=== PATIENT | male | born 1960 | race Caucasian/White ===

== ENCOUNTER 2017-04-11 08:58 | Emergency (ER) | payer MEDICAID ==
[2017-04-11 09:22] VITALS: BMI 20.7
[2017-04-11 09:23] VITALS: TEMP 98; O2SAT 99
--- NOTE | 2017-04-11 11:04 | ED PDOC ---
Arrival/HPI - General Chief Complaint: High Blood Pressure Time Seen by Provider: 04/11/17 09:22 Historian: Patient - History of Present Illness Narrative History of Present Illness (Text): 04/11/17 09:54 A 57 year old male, whose past medical history includes hypertension, presents to the emergency department complaining of dizziness and feeling off-balance. Patient reports waking up this morning with symptoms. Patient notes also experiencing slightly slurred speech with shaky voice this morning when he was talking to his .; heaviness in head, headache, and cold throughout body. 6- 8 months ago, patient experienced similar symptoms of dizziness, headache, and was seen by PMD but was told he had no medical problems. No other complaints at this time. Last time known well was last night but unsure what time. PMD: Dr. Tamara Truong Time/Duration: Other (symptoms began this morning) Symptom Onset: Sudden Symptom Course: Unchanged Past Medical History - Provider Review Nursing Documentation Reviewed: Yes - Cardiac Hx Cardiac Disorders: Yes Hx Hypertension: Yes - Pulmonary Hx Respiratory Disorders: No - Neurological Hx Neurological Disorder: No - HEENT Hx HEENT Disorder: No - Renal Hx Renal Disorder: No - Endocrine/Metabolic Hx Endocrine Disorders: Yes Hx Diabetes Mellitus Type 2: Yes - Hematological/Oncological Hx Blood Disorders: Yes Hx Hepatitis C: Yes - Integumentary Hx Dermatological Disorder: No - Musculoskeletal/Rheumatological Hx Musculoskeletal Disorders: No - Gastrointestinal Hx Gastrointestinal Disorders: No - Genitourinary/Gynecological Hx Genitourinary Disorders: No - Psychiatric Hx Psychophysiologic Disorder: No Hx Substance Use: No Family/Social History - Physician Review Nursing Documentation Reviewed: Yes Family/Social History: No Known Family HX Smoking Status: Never Smoked Hx Alcohol Use: No Hx Substance Use: No Allergies/Home Meds Allergies/Adverse Reactions: Allergies No Known Allergies Allergy (Verified 04/11/17 09:23) Home Medications: Home Meds Medication Instructions Recorded Confirmed Insulin Detemir [Levemir] 5 unit SC HS 04/11/17 04/11/17 Irbesartan [Avapro] 75 mg PO DAILY 04/11/17 04/11/17 metFORMIN [glucOPHAGE] 500 mg PO DAILY 04/11/17 04/11/17 Review of Systems - Physician Review All systems were reviewed & negative as marked: Yes - Review of Systems Skin: Other (feeling cold throughout body) Neurological: Headache (head-pressure), Dizziness, Focal Weakness, Gait Changes (patient states feeling off-balance), Speech Changes (felt voice was slightly slurred and shaky this morning when talking to ) Physical Exam Vital Signs Reviewed: Yes Vital Signs Temp Pulse Resp BP Pulse Ox 04/11/17 13:41 79 18 116/71 99 04/11/17 12:36 86 18 118/76 99 04/11/17 11:17 98 H 17 121/70 99 04/11/17 09:22 98.0 F 106 H 14 161/84 H 99 Temperature: Afebrile Blood Pressure: Hypertensive Pulse: Regular Respiratory Rate: Normal Appearance: Positive for: Well-Appearing Pain Distress: None Mental Status: Positive for: Alert and Oriented X 3 Finger Stick Blood Glucose: 243 - Systems Exam Head: Present: Atraumatic, Normocephalic Pupils: Present: PERRL Extroacular Muscles: Present: EOMI Conjunctiva: Present: Normal Mouth: Present: Moist Mucous Membranes Neck: Present: Normal Range of Motion Respiratory/Chest: Present: Clear to Auscultation, Good Air Exchange. No: Respiratory Distress, Accessory Muscle Use Cardiovascular: Present: Regular Rate and Rhythm, Normal S1, S2. No: Murmurs Abdomen: Present: Normal Bowel Sounds. No: Tenderness, Distention, Peritoneal Signs Back: Present: Normal Inspection Upper Extremity: Present: Normal Inspection. No: Cyanosis, Edema Lower Extremity: Present: Normal Inspection. No: Edema Neurological: Present: GCS=15, CN II-XII Intact, Speech Normal Skin: Present: Warm, Dry, Normal Color. No: Rashes Psychiatric: Present: Alert, Oriented x 3, Normal Insight, Normal Concentration Medical Decision Making ED Course and Treatment: 04/11/17 09:59 Impression: 57 year old male with dizziness, difficult speaking and gait changes since waking up this morning that have now resolved DDx: TIA vs CVA vs Electrolyte Disturbances, vs Hypertensive Emergency Plan: -- EKG -- Head CT -- Chest X-ray -- Labs -- Urinalysis -- Reassess and disposition Progress Notes: EKG: Ordered, reviewed, and independently interpreted the EKG. Rate : 101 BPM Rhythm : Sinus tachycardia Interpretation : No ST-segment elevations or depressions, no T-wave inversions, normal intervals. Comparison : No previous EKG for comparison. 04/11/2017 13:[address] IMPRESSION: No acute findings Dictator: Carlos Graves MD 04/11/17 13:[address] negative. Aspirin PO. EKG reviewed and documented. Patient symptoms are still normal. Case discussed with Dr. Holm who will place under her service. 04/11/17 13:[address] Alford who recommends an MRI and she will evaluate him. - Lab Interpretations Lab Results: 04/11/17 11:20 04/11/17 11:20 Lab Results 04/11/17 11:20: Blood Type A NEGATIVE, Antibody Screen Negative, BBK History Checked No verified bt 04/11/17 11:20: Sodium 140, Potassium 4.3, Chloride 102, Carbon Dioxide 27, Anion Gap 15, BUN 16, Creatinine 0.6 L, Est GFR ( Amer) > 60, Est GFR ( Non-Af Amer) > 60, Random Glucose 239 H, Calcium 9.5, Total Bilirubin 0.7, AST 44, ALT 71 H, Alkaline Phosphatase 70, Troponin I < 0.01, Total Protein 7.6, Albumin 4.2, Globulin 3.4, Albumin/Globulin Ratio 1.2, Triglycerides 72, Cholesterol 135, LDL Cholesterol Direct 82, HDL Cholesterol 38 04/11/17 11:20: PT 14.7 H, INR 1.27 H, APTT 29.9 04/11/17 11:20: WBC 9.0, RBC 4.83, Hgb 14.4, Hct 41.9 L, MCV 86.7, MCH 29.8, MCHC 34.4, RDW 12.6, Plt Count 161, MPV 11.8 H, Gran % 88.5 H, Lymph % (Auto) 7.0 L, [place] % (Auto) 4.2, Eos % (Auto) 0.2 L, Baso % (Auto) 0.1, Gran # 8.00 H, Lymph # (Auto) 0.6 L, [place] # (Auto) 0.4, Eos # (Auto) 0.0, Baso # (Auto) 0.01 04/11/17 11:00: Urine Color Yellow, Urine Appearance Clear, Urine pH 7.0, Ur Specific [place] 1.015, Urine Protein Negative, Urine Glucose (UA) >=1000, Urine Ketones Negative, Urine Blood Negative, Urine Nitrate Negative, Urine Bilirubin Negative, Urine Urobilinogen 0.2, Ur Leukocyte Esterase Negative - RAD Interpretation Radiology Orders: 04/11/17 09:58 CHEST ONE VIEW [RAD] Stat 04/11/17 09:59 HEAD W/O CONTRAST [CT] Stat - Medication Orders Current Medication Orders: Discontinued Medications Aspirin (Aspirin) 325 mg PO STAT STA Stop: 04/11/17 13:31 NIHSS Scale ([place]) Time Performed: 09:22 - How Severe is the Stoke Baseline Level of Consciousness: 0=Alert LOC to Questions: 0=Both comments correct LOC to commands: 0=Obeys both correctly Best Gaze: 0=Normal Visual: 0=No visual loss Facial: 0=Normal Motor Arm - Left: 0=No drift Motor Arm - Right: 0=No drift Motor Leg - Left: 0=No drift Motor Leg - Right: 0=No drift Limb Ataxia: 0=Absent Sensory: 0=Normal Best Language: 0=No aphasia Dysarthia: 0=Normal articulation Extinction & Inattention (Neglect): 0=Normal, no object Score: 0 Risk Level: No Stroke Risk rTPA Inclusion/Exclusion - Refusal of Treatment Patient Refused Treatment: No - Inclusion Criteria for Altepase Patient is 18 years or Older: Yes The Clinical Diagnosis of Ischemic Stroke That is Causing a Potentially Disabling Neurological Deficit: Yes Time of Onset is Well Established to be Less Than 270 Minute Before Treatment Would Begin: No Risk/Benefit Discussed With Patient/Family Member Present: No - Scribe Statement The provider has reviewed the documentation as recorded by the Griselda Austin Provider Scribe Attestation: All medical record entries made by the Griselda were at my direction and personally dictated by me. I have reviewed the chart and agree that the record accurately reflects my personal performance of the history, physical exam, medical decision making, and the department course for this patient. I have also personally directed, reviewed, and agree with the discharge instructions and disposition. Disposition/Present on Arrival - Present on Arrival Any Indicators Present on Arrival: No History of DVT/PE: No History of Uncontrolled Diabetes: No Urinary Catheter: No History of Decub. Ulcer: No History Surgical Site Infection Following: None - Disposition Have Diagnosis and Disposition been Completed?: Yes Diagnosis: TIA (transient ischemic attack), Hypertension Disposition: HOSPITALIZED Disposition Time: 13:30 Patient Plan: Observation Patient Problems: Current Active Problems Problem Status Onset TIA (transient ischemic attack) Acute Hypertension Acute Condition: FAIR Forms: [employer] (Bel[place]ian)
[2017-04-11 11:25] LABS: URINE BILIRUBIN NEGATIVE (NEGATIVE); URINE BLOOD NEGATIVE (NEGATIVE); URINE GLUCOSE (UA) >=1000 mg/dL (NEGATIVE); URINE LEUKOCYTE ESTERASE NEGATIVE Leu/uL (NEGATIVE); URINE NITRATE NEGATIVE (NEGATIVE); URINE PROTEIN NEGATIVE mg/dL (<30 mg/dL); URINE UROBILINOGEN 0.2 E.U./dL (<1 E.U./dL)
[2017-04-11 11:26] LABS: URINE APPEARANCE CLEAR (CLEAR); URINE COLOR YELLOW (YELLOW)
[2017-04-11 11:46] LABS: BASO # 0.01 K/mm3 (0.0-2.0); BASO % 0.1 % (0.0-3.0); EOS % 0.2 % (1.5-5.0); GRAN % 88.5 % (50.0-68.0); HEMOGLOBIN 14.4 g/dL (14.0-18.0); LYMPH # 0.6 (1.2-3.4); MEAN CELL VOLUME 86.7 fl (80.0-105.0); MEAN CORPUSCULAR HEMOGLOBIN 29.8 pg (25.0-35.0); MEAN CORPUSCULAR HGB CONC 34.4 g/dl (31.0-37.0); MEAN PLATELET VOLUME 11.8 fl (7.0-11.0); MONO # 0.4 (0.1-0.6); MONO % 4.2 % (1.0-6.0); RBC 4.83 10^6/uL (3.5-6.1); RED CELL DISTRIBUTION WIDTH 12.6 % (11.5-14.5)
[2017-04-11 11:58] LABS: ALB/GLOB RATIO 1.2 (1.1-1.8); ALBUMIN 4.2 g/dL (3.0-4.8); ALT/SGPT 71 U/L (7-56); AST/SGOT 44 U/L (17-59); BLOOD UREA NITROGEN 16 mg/dL (7-21); CALCIUM 9.5 mg/dL (8.4-10.5); GFR AFRICAN-AMERICAN > 60; GFR NON-AFRICAN AMERICAN > 60; HDL CHOLESTEROL 38 mg/dL (29-60)
[2017-04-11 12:09] LABS: LDL CHOLESTEROL 82 mg/dL (0-129)
[2017-04-11 12:12] LABS: TROPONIN I < 0.01 ng/mL
[2017-04-11 12:14] LABS: INR 1.27 (0.93-1.08); PARTIAL THROMBOPLASTIN TIME 29.9 Seconds (25.1-36.5); PROTHROMBIN TIME 14.7 SECONDS (9.4-12.5)
[2017-04-11 12:36] VITALS: RESP 18
--- NOTE | 2017-04-11 13:10 | CT ---
PROCEDURE: CT HEAD WITHOUT CONTRAST. HISTORY: dizziness r/o Cva COMPARISON: None available. TECHNIQUE: Axial computed tomography images were obtained through the head/brain without intravenous contrast. Radiation dose: Total exam DLP = 772 mGy-cm. This CT exam was performed using one or more of the following dose reduction techniques: Automated exposure control, adjustment of the mA and/or kV according to patient size, and/or use of iterative reconstruction technique. FINDINGS: HEMORRHAGE: No intracranial hemorrhage. BRAIN: No mass effect or edema. No atrophy or chronic microvascular ischemic changes. VENTRICLES: Unremarkable. No hydrocephalus. CALVARIUM: Unremarkable. PARANASAL SINUSES: Unremarkable as visualized. No significant inflammatory changes. MASTOID AIR CELLS: Unremarkable as visualized. No inflammatory changes. OTHER FINDINGS: None. IMPRESSION: No acute findings
--- NOTE | 2017-04-11 13:49 | RAD ---
PROCEDURE: CHEST RADIOGRAPH, 1 VIEW HISTORY: dizziness COMPARISON: AllNone available. FINDINGS: LUNGS: Clear. PLEURA: No pneumothorax or pleural fluid seen. CARDIOVASCULAR: Normal. OSSEOUS STRUCTURES: No significant abnormalities. VISUALIZED UPPER ABDOMEN: Normal. OTHER FINDINGS: None. IMPRESSION: No active disease.
--- NOTE | 2017-04-11 15:06 | CT ---
PROCEDURE: CT Angiography of the neck with contrast HISTORY: TIA COMPARISON: None available. TECHNIQUE: Contiguous axial images of the neck were obtained from the level of the skull-base to the superior mediastinum in the arteriographic phase of enhancement. Coronal and sagittal reformats or also generated. IV contrast dose: 150 cc of Omni 350 Radiation Dose - DLP: 453 mGy-cm This CT exam was performed using one or more of the following dose reduction techniques: Automated exposure control, adjustment of the mA and/or kV according to patient size, and/or use of iterative reconstruction technique. FINDINGS: RIGHT CAROTID ARTERIES: Common Carotid Artery: Normal. Carotid Bifurcation: Normal. Internal Carotid Artery:Normal. External Carotid Artery (proximal branches): Normal. LEFT CAROTID ARTERIES: Common Carotid Artery: Normal. Carotid Bifurcation: Normal. Internal Carotid Artery:Normal. External Carotid Artery (proximal branches): Normal. VERTEBRAL ARTERIES: Right Vertebral Artery: Dominant Left Vertebral Artery: Normal. OTHER FINDINGS: None. IMPRESSION: Normal CT Angiography of the neck. PROCEDURE: CT Angiography of the Brain. HISTORY: TIA COMPARISON: None available. TECHNIQUE: CT angiography of the intracranial arteries was performed. Coronal and sagittal maximum intensity projection reformated images were generated. This CT exam was performed using one or more of the following dose reduction techniques: Automated exposure control, adjustment of the mA and/or kV according to patient size, and/or use of iterative reconstruction technique. FINDINGS: INTERNAL CEREBRAL ARTERIES: Unremarkable. The skull base, petrous, cavernous and supraclinoid segments are bilaterally widely patent. ANTERIOR CEREBRAL ARTERIES: Unremarkable. A1 and A2 segments are widely patent. Smaller distal branches unremarkable, as visualized. MIDDLE CEREBRAL ARTERIES: Unremarkable. M1 and M2 segments are widely patent. Perisylvian branches grossly symmetric. POSTERIOR CIRCULATION: Basilar Artery: Unremarkable. Distal Vertebral Arteries: Unremarkable. Posterior Cerebral Arteries: Unremarkable. Posterior Inferior Cerebellar Arteries: Unremarkable. ANEURYSM/ VASCULAR MALFORMATIONS: None. OTHER FINDINGS: None. IMPRESSION: Unremarkable CT Angiography of the Brain.
[2017-04-11 15:21] LABS: MAGNESIUM 1.7 mg/dL (1.7-2.2)
--- NOTE | 2017-04-11 15:22 | CP.PCM.CON ---
History of Present Illness - History of Present Illness History of Present Illness: 57 yr old male with long standing history of Hypertension, not always compliant with his medications, presents with dizziness. is seen by , his pmd, and has had several hypertensive crises, and does not take his medication. He denies aphasia, loc, weakness, visual field deficits. In ER, his bp was brought down to 120/30, from 160/80. PMH/PSH: as above and gives a history of Hepatitis C, no old strokes. FH/SH: no tobacco, no etoh. All: nkda. On exam: aaox3. Pupils 3mm-2mm with light. EOMI. CN 2-12 normal. VFF Cn 2-12 normal. Speech fluent. Can name and repeat. No dysarthria, no aphasia. Motor: 5/5 ul and ll bl. Sensory: no deficits. Cerebellar: no dysmetria, can walk toes heels well. Dtr: +1 ul and ll bl. Toes downgoing. No clonus. Past Patient History - Past Social History Smoking Status: Never Smoked - CARDIAC Hx Cardiac Disorders: Yes Hx Hypertension: Yes - PULMONARY Hx Respiratory Disorders: No - NEUROLOGICAL Hx Neurological Disorder: No - HEENT Hx HEENT Problems: No - RENAL Hx Chronic Kidney Disease: No - ENDOCRINE/METABOLIC Hx Endocrine Disorders: Yes Hx Diabetes Mellitus Type 2: Yes - HEMATOLOGICAL/ONCOLOGICAL Hx Blood Disorders: Yes Hx Hepatitis C: Yes - INTEGUMENTARY Hx Dermatological Problems: No - MUSCULOSKELETAL/RHEUMATOLOGICAL Hx Musculoskeletal Disorders: No - GASTROINTESTINAL Hx Gastrointestinal Disorders: No - GENITOURINARY/GYNECOLOGICAL Hx Genitourinary Disorders: No - PSYCHIATRIC Hx Psychophysiologic Disorder: No Hx Substance Use: No - SURGICAL HISTORY Hx Surgeries: No Meds Allergies/Adverse Reactions: Allergies Allergy/AdvReac Type Severity Reaction Status Date / Time No Known Allergies Allergy Verified 04/11/17 09:23 - Medications Medications: Current Medications Aspirin (Ecotrin) 81 mg PO DAILY [facility] Atorvastatin Calcium (Lipitor) 40 mg PO DIN [facility] Clopidogrel Bisulfate (Plavix) 75 mg PO DAILY [facility] Heparin Sodium (Porcine) (Heparin) 5,000 units SC Q12 [facility] PRN Reason: Protocol Insulin Detemir (Levemir) 5 unit SC HS [facility] Insulin Human Lispro (Humalog Low) 0 units SC ACHS [facility] PRN Reason: Protocol Losartan Potassium (Cozaar) 25 mg PO DAILY [facility] Pantoprazole Sodium (Protonix Ec Tab) 40 mg PO 0600 [facility] Results - Vital Signs Recent Vital Signs: Last Vital Signs Temp 98.0 F 04/11/17 09:22 Pulse 79 04/11/17 13:41 Resp 18 04/11/17 13:41 BP 116/71 04/11/17 13:41 Pulse Ox 99 04/11/17 13:41 - Labs Result Diagrams: 04/11/17 11:20 04/11/17 11:20 - Imaging and Cardiology CT scan - head Status: Image reviewed by me, Report reviewed by me Assessment & Plan - Assessment and Plan (Free Text) Assessment: 57 yr old male with hypertensive crisis and normal neurological exam. CT and CTA are normal, and he has a normal neurological examination. I will recommend to discharge home and follow up with pmd. I have also counselled patient re: diet, exercise and compliance with medications.
[2017-04-11 15:24] VITALS: BP 114/69; PULSE 75
--- NOTE | 2017-04-11 15:54 | CP.PCM.HP ---
<Andreia Varela - Last Filed: 04/11/17 15:47> History of Present Illness - History of Present Illness History of Present Illness: Dr. Avila Service CC: High BP, headache, dizzyiness, slurred speech HPI: 57 M with a PMHx of HTN, DM2, and hep c (known untreated) presented to the [facility] with complaints of headache, dizziness, slurred speech, and lightheadedness. Pt states that he took his blood sugar this morning, found to be elevated in 200s, then took his BP found it to be elevated 180/120 and subsequently took a double dose of his anti-HTN medication (that he has not been taking regularly). Pt reported slight slurring of his speech while speaking to this this morning, however resolved within 5-10 mins. Pt stated that by the time he arrived to the ED, his symptoms had resolved. Pt denied fever, chills, sob, weakness, dysphagia, blurry vision, abdominal pains, chest pains, nausea, vomiting, diarrhea, and constipation. PMHx: HTN, DM2, Hep C PSHx: Denied SHx: Denied tobacco, etoh, or illicit drugs FamilyHx: Denied Meds: Metformin, glypizide, irbesartan, levemir Allergies: NKDA PMD: Dr. Lima Present on Admission - Present on Admission Any Indicators Present on Admission: No Review of Systems - Review of Systems Review of Systems: as per HPI Otherwise negative Past Patient History - Past Social History Smoking Status: Never Smoked - CARDIAC Hx Cardiac Disorders: Yes Hx Hypertension: Yes - PULMONARY Hx Respiratory Disorders: No - NEUROLOGICAL Hx Neurological Disorder: No - HEENT Hx HEENT Problems: No - RENAL Hx Chronic Kidney Disease: No - ENDOCRINE/METABOLIC Hx Endocrine Disorders: Yes Hx Diabetes Mellitus Type 2: Yes - HEMATOLOGICAL/ONCOLOGICAL Hx Blood Disorders: Yes Hx Hepatitis C: Yes - INTEGUMENTARY Hx Dermatological Problems: No - MUSCULOSKELETAL/RHEUMATOLOGICAL Hx Musculoskeletal Disorders: No - GASTROINTESTINAL Hx Gastrointestinal Disorders: No - GENITOURINARY/GYNECOLOGICAL Hx Genitourinary Disorders: No - PSYCHIATRIC Hx Psychophysiologic Disorder: No Hx Substance Use: No - SURGICAL HISTORY Hx Surgeries: No Meds Allergies/Adverse Reactions: Allergies Allergy/AdvReac Type Severity Reaction Status Date / Time No Known Allergies Allergy Verified 04/11/17 09:23 Physical Exam - Constitutional Appears: No Acute Distress - Head Exam Head Exam: ATRAUMATIC, NORMAL INSPECTION, NORMOCEPHALIC - Eye Exam Eye Exam: EOMI, Normal appearance, PERRL Pupil Exam: NORMAL ACCOMODATION, PERRL - ENT Exam ENT Exam: Mucous Membranes Moist, Normal Exam - Neck Exam Neck exam: Positive for: Normal Inspection - Respiratory Exam Respiratory Exam: Clear to Auscultation Bilateral, NORMAL BREATHING PATTERN - Cardiovascular Exam Cardiovascular Exam: REGULAR RHYTHM, +S1, +S2 - GI/Abdominal Exam GI & Abdominal Exam: Normal Bowel Sounds, Soft. absent: Tenderness - Extremities Exam Extremities exam: Positive for: normal inspection - Back Exam Back exam: NORMAL INSPECTION - Neurological Exam Neurological exam: Alert, CN II-XII Intact, Normal Gait, Oriented x3, Reflexes Normal Additional comments: No dysarthria, no aphasia. Motor: 5/5 ul and ll bl. Sensory: no deficits. Cerebellar: no dysmetria, can walk toes heels well. Dtr: +1 ul and ll bl. Toes downgoing. No clonus. - Psychiatric Exam Psychiatric exam: Normal Affect, Normal Mood - Skin Skin Exam: Dry, Intact, Normal Color, Warm Results - Vital Signs Recent Vital Signs: Last Vital Signs Temp 98.0 F 04/11/17 09:22 Pulse 75 04/11/17 15:23 Resp 18 04/11/17 15:23 BP 114/69 04/11/17 15:23 Pulse Ox 99 04/11/17 15:23 - Labs Result Diagrams: 04/11/17 11:20 04/11/17 11:20 Labs: Laboratory Results - last 24 hr 04/11/17 04/11/17 04/11/17 11:00 11:20 11:20 WBC 9.0 RBC 4.83 Hgb 14.4 Hct 41.9 L MCV 86.7 MCH 29.8 MCHC 34.4 RDW 12.6 Plt Count 161 MPV 11.8 H Gran % 88.5 H Lymph % (Auto) 7.0 L Creek % (Auto) 4.2 Eos % (Auto) 0.2 L Baso % (Auto) 0.1 Gran # 8.00 H Lymph # (Auto) 0.6 L Creek # (Auto) 0.4 Eos # (Auto) 0.0 Baso # (Auto) 0.01 PT 14.7 H INR 1.27 H APTT 29.9 Sodium Potassium Chloride Carbon Dioxide Anion Gap BUN Creatinine Est GFR ( Amer) Est GFR (Non-Af Amer) Random Glucose Calcium Phosphorus Magnesium Total Bilirubin AST ALT Alkaline Phosphatase Troponin I Total Protein Albumin Globulin Albumin/Globulin Ratio Triglycerides Cholesterol LDL Cholesterol Direct HDL Cholesterol Urine Color Yellow Urine Appearance Clear Urine pH 7.0 Ur Specific [place] 1.015 Urine Protein Negative Urine Glucose (UA) >=1000 Urine Ketones Negative Urine Blood Negative Urine Nitrate Negative Urine Bilirubin Negative Urine Urobilinogen 0.2 Ur Leukocyte Esterase Negative Blood Type Blood Type Confirm Antibody Screen BBK History Checked 04/11/17 04/11/17 04/11/17 11:20 11:20 12:50 WBC RBC Hgb Hct MCV MCH MCHC RDW Plt Count MPV Gran % Lymph % (Auto) Creek % (Auto) Eos % (Auto) Baso % (Auto) Gran # Lymph # (Auto) Creek # (Auto) Eos # (Auto) Baso # (Auto) PT INR APTT Sodium 140 Potassium 4.3 Chloride 102 Carbon Dioxide 27 Anion Gap 15 BUN 16 Creatinine 0.6 L Est GFR ( Amer) > 60 Est GFR (Non-Af Amer) > 60 Random Glucose 239 H Calcium 9.5 Phosphorus Magnesium Total Bilirubin 0.7 AST 44 ALT 71 H Alkaline Phosphatase 70 Troponin I < 0.01 Total Protein 7.6 Albumin 4.2 Globulin 3.4 Albumin/Globulin Ratio 1.2 Triglycerides 72 Cholesterol 135 LDL Cholesterol Direct 82 HDL Cholesterol 38 Urine Color Urine Appearance Urine pH Ur Specific [place] Urine Protein Urine Glucose (UA) Urine Ketones Urine Blood Urine Nitrate Urine Bilirubin Urine Urobilinogen Ur Leukocyte Esterase Blood Type A NEGATIVE Blood Type Confirm A NEGATIVE Antibody Screen Negative BBK History Checked No verified bt 04/11/17 15:00 WBC RBC Hgb Hct MCV MCH MCHC RDW Plt Count MPV Gran % Lymph % (Auto) Creek % (Auto) Eos % (Auto) Baso % (Auto) Gran # Lymph # (Auto) Creek # (Auto) Eos # (Auto) Baso # (Auto) PT INR APTT Sodium Potassium Chloride Carbon Dioxide Anion Gap BUN Creatinine Est GFR ( Amer) Est GFR (Non-Af Amer) Random Glucose Calcium Phosphorus 2.4 L Magnesium 1.7 Total Bilirubin AST ALT Alkaline Phosphatase Troponin I Total Protein Albumin Globulin Albumin/Globulin Ratio Triglycerides Cholesterol LDL Cholesterol Direct HDL Cholesterol Urine Color Urine Appearance Urine pH Ur Specific [place] Urine Protein Urine Glucose (UA) Urine Ketones Urine Blood Urine Nitrate Urine Bilirubin Urine Urobilinogen Ur Leukocyte Esterase Blood Type Blood Type Confirm Antibody Screen BBK History Checked Assessment & Plan - Assessment and Plan (Free Text) Assessment: 57 M with a PMHx of HTN, DM2, and hep c (known untreated) presented to the [facility] with complaints of headache, dizziness, slurred speech, and lightheadedness admitted for TIA. TIA CTH negative CTA pending read Lipid profile wnl ASA in ED BP stable ABCD2: 3, low risk asymptomatic Dr. Alford, Neuro Consulted fu reccs HTN Stable continue home meds: irbesartan DM2 hold metformin HgbA1c ISS levemir 5units HS HepC outpt fu LFTs wnl Gi ppx protonix DVT ppx heparin Seen reviewed and discussed with attending Dr. Avila <Becki Avila - Last Filed: 04/11/17 16:31> Results - Vital Signs Recent Vital Signs: Last Vital Signs Temp 98.0 F 04/11/17 09:22 Pulse 75 04/11/17 15:23 Resp 18 04/11/17 15:23 BP 114/69 04/11/17 15:23 Pulse Ox 99 04/11/17 15:23 - Labs Result Diagrams: 04/11/17 11:20 04/11/17 11:20 Labs: Laboratory Results - last 24 hr 04/11/17 04/11/17 04/11/17 11:00 11:20 11:20 WBC 9.0 RBC 4.83 Hgb 14.4 Hct 41.9 L MCV 86.7 MCH 29.8 MCHC 34.4 RDW 12.6 Plt Count 161 MPV 11.8 H Gran % 88.5 H Lymph % (Auto) 7.0 L [place] % (Auto) 4.2 Eos % (Auto) 0.2 L Baso % (Auto) 0.1 Gran # 8.00 H Lymph # (Auto) 0.6 L [place] # (Auto) 0.4 Eos # (Auto) 0.0 Baso # (Auto) 0.01 PT 14.7 H INR 1.27 H APTT 29.9 Sodium Potassium Chloride Carbon Dioxide Anion Gap BUN Creatinine Est GFR ( Amer) Est GFR (Non-Af Amer) Random Glucose Calcium Phosphorus Magnesium Total Bilirubin AST ALT Alkaline Phosphatase Troponin I Total Protein Albumin Globulin Albumin/Globulin Ratio Triglycerides Cholesterol LDL Cholesterol Direct HDL Cholesterol TSH 3rd Generation Urine Color Yellow Urine Appearance Clear Urine pH 7.0 Ur Specific [place] 1.015 Urine Protein Negative Urine Glucose (UA) >=1000 Urine Ketones Negative Urine Blood Negative Urine Nitrate Negative Urine Bilirubin Negative Urine Urobilinogen 0.2 Ur Leukocyte Esterase Negative Blood Type Blood Type Confirm Antibody Screen BBK History Checked 04/11/17 04/11/17 04/11/17 11:20 11:20 12:50 WBC RBC Hgb Hct MCV MCH MCHC RDW Plt Count MPV Gran % Lymph % (Auto) Creek % (Auto) Eos % (Auto) Baso % (Auto) Gran # Lymph # (Auto) [place] # (Auto) Eos # (Auto) Baso # (Auto) PT INR APTT Sodium 140 Potassium 4.3 Chloride 102 Carbon Dioxide 27 Anion Gap 15 BUN 16 Creatinine 0.6 L Est GFR ( Amer) > 60 Est GFR (Non-Af Amer) > 60 Random Glucose 239 H Calcium 9.5 Phosphorus Magnesium Total Bilirubin 0.7 AST 44 ALT 71 H Alkaline Phosphatase 70 Troponin I < 0.01 Total Protein 7.6 Albumin 4.2 Globulin 3.4 Albumin/Globulin Ratio 1.2 Triglycerides 72 Cholesterol 135 LDL Cholesterol Direct 82 HDL Cholesterol 38 TSH 3rd Generation Urine Color Urine Appearance Urine pH Ur Specific [place] Urine Protein Urine Glucose (UA) Urine Ketones Urine Blood Urine Nitrate Urine Bilirubin Urine Urobilinogen Ur Leukocyte Esterase Blood Type A NEGATIVE Blood Type Confirm A NEGATIVE Antibody Screen Negative BBK History Checked No verified bt 04/11/17 04/11/17 15:00 15:00 WBC RBC Hgb Hct MCV MCH MCHC RDW Plt Count MPV Gran % Lymph % (Auto) Creek % (Auto) Eos % (Auto) Baso % (Auto) Gran # Lymph # (Auto) Creek # (Auto) Eos # (Auto) Baso # (Auto) PT INR APTT Sodium Potassium Chloride Carbon Dioxide Anion Gap BUN Creatinine Est GFR ( Amer) Est GFR (Non-Af Amer) Random Glucose Calcium Phosphorus 2.4 L Magnesium 1.7 Total Bilirubin AST ALT Alkaline Phosphatase Troponin I Total Protein Albumin Globulin Albumin/Globulin Ratio Triglycerides Cholesterol LDL Cholesterol Direct HDL Cholesterol TSH 3rd Generation 0.52 Urine Color Urine Appearance Urine pH Ur Specific [place] Urine Protein Urine Glucose (UA) Urine Ketones Urine Blood Urine Nitrate Urine Bilirubin Urine Urobilinogen Ur Leukocyte Esterase Blood Type Blood Type Confirm Antibody Screen BBK History Checked Attending/Attestation - Attestation I have personally seen and examined this patient.: Yes I have fully participated in the care of the patient.: Yes I have reviewed all pertinent clinical information: Yes Notes (Text): 04/11/17 16:31 Patient was seen and examined with medical records field technician. Agreed with resident assessment and plan. Management plan was discussed in detail with patient Education was provided.
--- NOTE | 2017-04-11 15:57 | CARD ---
APPROVED REPORT EKG Measurement Heart [id number] <Conclusion> Sinus tachycardia Otherwise normal ECG
[2017-04-11] MEDS ORDERED: Insulin Lispro (humaLOG) LOW Coverage SC SCH (16:30)
[2017-04-11] MEDS ORDERED: Insulin Detemir 100 units/ml Vial (Levemir) SC SCH (22:00)
[2017-04-12] MEDS ORDERED: Pantoprazole 40 mg EC Tab PO SCH (06:00)
== END 2017-04-11 15:46 | disposition left against medical advice (07) ==
LOC: ED 08:58 → ERH 13:43 → UNDOADMOB 13:43 → ERH 14:25 → ED 15:45
DX: G45.9 Transient cerebral ischemic attack, unspecified (principal); I10 Essential (primary) hypertension; E11.9 Type 2 diabetes mellitus without complications; Z86.19 Personal history of other infectious and parasitic diseases
CPT/HCPCS: 70450; 70496; 70498; 71045; 80053; 80061; 81003; 83036; 83735; 84100; 84443; 84484; 85025; 85610; 85730; 86850; 86900; 93005; 99285; Q9967